=== PATIENT | female | born 1945 ===

== ENCOUNTER 2018-05-01 11:56 | Emergency (ER) | payer MEDICARE, OTHER ==
[2018-05-01 12:13] VITALS: O2SAT 99
--- NOTE | 2018-05-01 12:27 | ED PDOC ---
HPI: Female Pain Time Seen by Provider: 05/01/18 12:12 Chief Complaint (Nursing): Female Genitourinary Chief Complaint (Provider): Dysuria History Per: Patient, Family History/Exam Limitations: no limitations Onset/Duration Of Symptoms: Days (3) Additional Complaint(s): Pt reports dysuria, frequency and hesitancy X 3 days. Denies fever, abdominal pain, hematuria, vaginal discharge, constipation, diarrhea. Abnormal Vaginal Bleeding: No Past Medical History Reviewed: Nursing Documentation, Vital Signs Vital Signs: Last Vital Signs Temp 97.8 F 05/01/18 12:10 Pulse 91 H 05/01/18 12:10 Resp 20 05/01/18 12:10 BP 157/83 H 05/01/18 12:10 Pulse Ox 99 05/01/18 12:10 - Medical History PMH: No Chronic Diseases - Surgical History Surgical History: No Surg Hx - Family History Family History: States: Unknown Family Hx - Living Arrangements Living Arrangements: With Family - Social History Current smoker - smoking cessation education provided: No Alcohol: None - Home Medications Home Medications: Ambulatory Orders Medication Instructions Recorded Nitrofurantoin Macrocrystals 100 mg PO BID #13 cap 05/01/18 [Macrobid] Phenazopyridine [Pyridium] 200 mg PO TID PRN #6 tab 05/01/18 - Allergies Allergies/Adverse Reactions: Allergies Allergy/AdvReac Type Severity Reaction Status Date / Time No Known Allergies Allergy Verified 05/01/18 12:10 Review of Systems Constitutional: Negative for: Fever, Chills Gastrointestinal: Negative for: Nausea, Vomiting, Abdominal Pain, Diarrhea Genitourinary Female: Positive for: Dysuria, Frequency. Negative for: Incontinence, Hematuria, Vaginal Discharge, Vaginal Bleeding, Pelvic Pain Musculoskeletal: Negative for: Neck Pain, Back Pain Skin: Negative for: Rash, Lesions Neurological: Negative for: Headache Physical Exam - Reviewed Nursing Documentation Reviewed: Yes Vital Signs Reviewed: Yes - Physical Exam Appears: Positive for: Well, No Acute Distress Skin: Positive for: Normal Color, Warm, Dry Eye Exam: Positive for: Normal appearance, EOMI, PERRL Cardiovascular/Chest: Positive for: Regular Rate, Rhythm Respiratory: Positive for: Normal Breath Sounds Gastrointestinal/Abdominal: Positive for: Normal Exam, Bowel Sounds, Soft. Negative for: Tenderness Back: Positive for: Normal Inspection. Negative for: L CVA Tenderness, R CVA Tenderness Extremity: Positive for: Normal ROM Neurologic/Psych: Positive for: Alert, Oriented - ECG O2 Sat by Pulse Oximetry: 99 Medical Decision Making Medical Decision Makin yo female with dysuria. - urine dip - UA Disposition - Clinical Impression Clinical Impression: Urinary tract infection - Disposition Referrals: LTAC, [facility] [Outside] Disposition: Routine/Home Disposition Time: 13:57 Condition: GOOD Prescriptions: Nitrofurantoin Macrocrystals [Macrobid] 100 mg PO BID #13 cap Phenazopyridine [Pyridium] 200 mg PO TID PRN #6 tab PRN Reason: Bladder Spasm Instructions: Urinary Tract Infections in Adults Forms: [facility] (Kyrgyz) Print Language: TAMAZIGHT
[2018-05-01 12:58] LABS: SQUAMOUS EPITHIAL < 1 /hpf (0-5); URINE BACTERIA FEW (<OCC); URINE BILIRUBIN NEGATIVE (NEGATIVE); URINE BLOOD SMALL (NEGATIVE); URINE CLARITY CLOUDY (Clear); URINE COLOR YELLOW (YELLOW); URINE GLUCOSE (UA) NEG (Normal); URINE LEUKOCYTE ESTERASE LARGE Leu/uL (Negative); URINE PROTEIN NEGATIVE (NEGATIVE); URINE UROBILINOGEN 0.2-1.0 mg/dL (0.2-1.0)
[2018-05-01 14:17] VITALS: BP 144/83; PULSE 83; RESP 17; TEMP 98.1
== END 2018-05-01 14:17 | disposition home or self-care (01) ==
LOC: H.ER 11:56
DX: N39.0 Urinary tract infection, site not specified (principal)

== ENCOUNTER 2018-10-11 11:30 | Emergency (ER) | payer MEDICARE, OTHER ==
[2018-10-11 11:37] VITALS: BP 141/77; PULSE 93; RESP 18; TEMP 98.5; O2SAT 97; BMI 27.8
--- NOTE | 2018-10-11 12:28 | ED PDOC ---
HPI: CCC, URI, Sore Throat Time Seen by Provider: 10/11/18 12:09 Chief Complaint (Nursing): ENT Problem History Per: Patient, Family History/Exam Limitations: language barrier (french speaking, morris is translating) Onset/Duration Of Symptoms: Days Additional Complaint(s): 72 yo F presents with 3 days of left ear pain, feeling hot and cold, bodyaches, one episode of loose non bloody stool this morning and 1-2 weeks of nasal congestion. Pt has not had a fever when checked. She took Tylenol for the ear pain 2 days ago with mild relief. SHe has used Afrin nasal spray for 2 days with mild relief. Pt denies headache, changes in vision, chest pain, SOB, changes in hearing, sore throat, difficulty swallowing. Denies abdominal pain, nausea or vomiting, urinary symptoms. Denies eating anything abnormal or being on a ntibiotics recently. Of note, Pt is visiting from [place], does not have a PMD here. She got here / and will be here for 1-3 months. Past Medical History Reviewed: Historical Data, Nursing Documentation, Vital Signs Vital Signs: Last Vital Signs Temp 98.5 F 10/11/18 11:36 Pulse 93 H 10/11/18 11:36 Resp 18 10/11/18 11:36 BP 141/77 10/11/18 11:36 Pulse Ox 97 10/11/18 11:36 - Medical History PMH: No Chronic Diseases - Family History Family History: States: Unknown Family Hx - Social History Current smoker - smoking cessation education provided: Yes Alcohol: Occasional Drugs: Denies - Home Medications Home Medications: Ambulatory Orders Medication Instructions Recorded Nitrofurantoin Macrocrystals 100 mg PO BID #13 cap 05/01/18 [Macrobid] Phenazopyridine [Pyridium] 200 mg PO TID PRN #6 tab 05/01/18 Amoxicillin/Clavulanate [Augmentin 1 tab PO BID 10 Days #20 tab 10/11/18 875 MG-125 MG] Fluticasone Nasal [Flonase] 1 spr NS Q6 PRN #1 bottle 10/11/18 - Allergies Allergies/Adverse Reactions: Allergies Allergy/AdvReac Type Severity Reaction Status Date / Time No Known Allergies Allergy Verified 10/11/18 11:41 Review of Systems Constitutional: Positive for: Chills, Sweats ENT: Positive for: Ear Pain, Nose Congestion. Negative for: Ear Discharge, Throat Pain, Throat Swelling Cardiovascular: Negative for: Chest Pain Respiratory: Negative for: Cough, Shortness of Breath Gastrointestinal: Positive for: Diarrhea. Negative for: Nausea, Vomiting, Abdominal Pain Genitourinary Female: Negative for: Dysuria, Frequency Musculoskeletal: Negative for: Neck Pain, Back Pain Physical Exam - Reviewed Nursing Documentation Reviewed: Yes Vital Signs Reviewed: Yes - Physical Exam Comments: GENERAL APPEARANCE: Patient is awake, alert, oriented x 3, in no acute distress. SKIN: Warm, dry; (-) cyanosis. ENMT: Canals : (-) cerumen impaction, TMs: (+)left TM bulging and (+) erythema, (+)effusion bilateral, (-) perforation,(-) vesicles, other ear normal. Frontal / maxillary sinuses : (-) tenderness. (-) TMJ tenderness. (+)audible nasal congestion, Pharynx: Clear; (-) erythema, (-) exudate. Airway patent: (-) stridor. NECK: (-) stiffness, (-) tenderness, (-) lymphadenopathy. LUNGS: clear, (-) wheezing, (-) rhonchi. breaths sounds equal throughout CARDIAC: RRR, (-) murmurs, (-) gallops. ABDOMEN AND GI: normal bowel sounds, soft, (-) tenderness, (-)organomegaly NEURO: it consultant grossly intact, normal steady gait, motor and sensation intact - ECG O2 Sat by Pulse Oximetry: 97 Medical Decision Making Medical Decision Makin:15 initial eval pt with ear infection, sinusitis vs allergies Will treat with antibiotics and medications to go home with Discussed results, diagnosis, treatment, return precautions and f/u with pt who is understanding, in agreement and stable for dc Disposition - Clinical Impression Clinical Impression: Left otitis media with effusion, Sinusitis - Patient ED Disposition Is Patient to be Admitted: No Counseled Patient/Family Regarding: Studies Performed, Diagnosis, Need For Followup, Rx Given - Disposition Referrals: [facility] [Outside] Disposition: Routine/Home Disposition Time: 12:29 Condition: STABLE Additional Instructions: The emergency medical care you received today was directed at your acute symptoms. If you were prescribed any medication, please fill it and take as directed. It may take several days for your symptoms to resolve. Return to the Emergency Department if your symptoms worsen, do not improve, or if you have any other problems. Please contact your doctor in 2 days for re-evaluation and follow up / or call one of the physicians/clinics you have been referred to that are listed on the Patient Visit Information form that is included in your discharge packet. Bring any paperwork you were given at discharge with you along with any medications you are taking to your follow up visit. Our treatment cannot replace ongoing m edical care by a primary care provider (PCP) outside of the emergency department. La atencin mdica de emergencia que recibi hoy se dirigi a abner sntomas agudos. Si le recetaron algn medicamento, llnelo y tmelo segn las indicaciones. Los sntomas pueden tardar varios gonzales en resolverse. Regrese al Departamento de Emergencias si abner sntomas empeoran, no mejoran o si tiene otros problemas. Comunquese con nogueira mdico dentro de 2 gonzales para annabella nueva evaluacin y tahir un seguimiento o llame a josias de los mdicos / clnicas a los que diaz sido referido y que figuran en el formulario de Informacin de visita al paciente que se incluye en nogueira paquete de margarita. Lleve todos los documentos que recibi al momento del margarita junto con los medicamentos que est tomando para nogueira visita de seguimiento. Nuestro tratamiento no puede reemplazar la atencin mdica continua por parte de un proveedor de atencin primaria (PCP) fuera del departamento de emergencias. Prescriptions: Amoxicillin/Clavulanate [Augmentin 875 MG-125 MG] 1 tab PO BID 10 Days #20 tab Fluticasone Nasal [Flonase] 1 spr NS Q6 PRN #1 bottle PRN Reason: Nasal Congestion Instructions: Sinusitis in Adults, Ear Infections (Otitis Media) Forms: [facility] (Welsh) Print Language: ANGOLAN - POA Present On Arrival: None
== END 2018-10-11 12:45 | disposition home or self-care (01) ==
LOC: H.ER 11:30
DX: J32.9 Chronic sinusitis, unspecified (principal); H66.92 Otitis media, unspecified, left ear; F17.200 Nicotine dependence, unspecified, uncomplicated

== ENCOUNTER 2018-11-01 10:39 | Observation (INO) | payer MEDICARE, OTHER ==
[2018-11-01 11:16] VITALS: BMI 27.4
--- NOTE | 2018-11-01 12:25 | ED PDOC ---
HPI: General Adult Time Seen by Provider: 11/01/18 11:21 Chief Complaint (Nursing): ENT Problem Chief Complaint (Provider): ENT Problem History Per: Patient History/Exam Limitations: clinical condition Onset/Duration Of Symptoms: Days (x2 weeks ear pain, x4 months chest pain) Current Symptoms Are (Timing): Still Present Additional Complaint(s): 72 year old female with no significant past medical history presents to the ED with left ear pain onset 2 weeks and chest pain onset 4 months. Patient reports she was evaluated in this ED 2 weeks ago for left ear pain and given prescription for antibiotics with no relief. At present, pain is radiating to her face and she feels like something is dropping in her ear and moving to the right. Patient reports chest pain and shortness of breath for 4 months that is worse with exertion. Patient is visiting from [place], but will be living here. PMD: none provideda Past Medical History Reviewed: Historical Data, Nursing Documentation, Vital Signs Vital Signs: Last Vital Signs Temp 98.3 F 11/01/18 11:15 Pulse 82 11/01/18 11:15 Resp 16 11/01/18 11:15 BP 114/61 11/01/18 11:15 Pulse Ox 97 11/01/18 11:15 Primary Care Provider: FAMILY PROVIDER,NO - Medical History PMH: No Chronic Diseases - Family History Family History: States: Unknown Family Hx - Social History Current smoker - smoking cessation education provided: No Ex-Smoker (has not smoked in the last 12 months): No - Home Medications Home Medications: Ambulatory Orders Medication Instructions Recorded Nitrofurantoin Macrocrystals 100 mg PO BID #13 cap 05/01/18 [Macrobid] Phenazopyridine [Pyridium] 200 mg PO TID PRN #6 tab 05/01/18 Amoxicillin/Clavulanate [Augmentin 1 tab PO BID 10 Days #20 tab 10/11/18 875 MG-125 MG] Fluticasone Nasal [Flonase] 1 spr NS Q6 PRN #1 bottle 10/11/18 - Allergies Allergies/Adverse Reactions: Allergies Allergy/AdvReac Type Severity Reaction Status Date / Time No Known Allergies Allergy Verified 11/01/18 11:30 Review of Systems ROS Statement: Except As Marked, All Systems Reviewed And Found Negative ENT: Positive for: Ear Pain Cardiovascular: Positive for: Chest Pain Respiratory: Positive for: Shortness of Breath Physical Exam - Reviewed Nursing Documentation Reviewed: Yes Vital Signs Reviewed: Yes - Physical Exam Appears: Positive for: No Acute Distress Head Exam: Positive for: ATRAUMATIC, NORMOCEPHALIC Skin: Positive for: Normal Color, Warm, Dry Eye Exam: Positive for: Normal appearance, EOMI, PERRL ENT: Positive for: Other (tenderness to posterior ocular and periocular area, no discharge) Neck: Positive for: Painless ROM Cardiovascular/Chest: Positive for: Regular Rate, Rhythm. Negative for: Murmur Respiratory: Positive for: Normal Breath Sounds. Negative for: Respiratory Distress Gastrointestinal/Abdominal: Positive for: Normal Exam, Soft. Negative for: Tenderness Extremity: Positive for: Normal ROM (upper and lower). Negative for: Pedal Edema, Deformity Neurological/Psych: Positive for: Awake, Alert, Oriented (x3) - Laboratory Results Result Diagrams: 11/01/18 12:20 11/01/18 12:20 - ECG O2 Sat by Pulse Oximetry: 97 (RA) Pulse Ox Interpretation: Normal Medical Decision Making Medical Decision Making: Time: 1158 Impression: Ear/facial pain and chest pain Plan: --IAC w/o contrast --EKG --ProBNP --CMP --troponin --u dip --CBC --PTT --PT/INR --CXR --UA Time: 1523 --Spoke to Dr. Muhammad for admission, who recommends, cardiology consult, ECHO, aspirin, and troponin. Scribe Attestation: Documented by Roseanna Jacobs, acting as a scribe for Genesis Edouard MD. Provider Scribe Attestation: All medical record entries made by the Scribe were at my direction and personally dictated by me. I have reviewed the chart and agree that the record accurately reflects my personal performance of the history, physical exam, medical decision making, and the department course for this patient. I have also personally directed, reviewed, and agree with the discharge instructions and disposition. Disposition - Disposition Forms: [facility] (Hungarian)
[2018-11-01 12:37] LABS: INR 1.1; PROTHROMBIN TIME 12.6 Seconds (9.8-13.1)
[2018-11-01 12:39] LABS: PARTIAL THROMBOPLASTIN TIME 32.4 Seconds (25.6-37.1)
[2018-11-01 12:40] LABS: ALB/GLOB RATIO 1.4 (1.0-2.1); ALBUMIN 4.1 g/dL (3.5-5.0); ALT/SGPT 29 U/L (9-52); AST/SGOT 17 U/L (14-36); BASO % 0.6 % (0.0-2.0); BLOOD UREA NITROGEN 17 mg/dl (7-17); CALCIUM 9.1 mg/dL (8.4-10.2); EOS # 0.3 K/uL (0.0-0.7); EOS % 4.2 % (0.0-4.0); GFR NON-AFRICAN AMERICAN > 60; HEMOGLOBIN 12.6 g/dL (12.0-16.0); LYMPH # 1.4 K/uL (1.0-4.3); LYMPH % 17.8 % (20.0-40.0); MEAN CELL VOLUME 80.9 fl (81.0-99.0); MEAN CORPUSCULAR HEMOGLOBIN 27.1 pg (27.0-31.0); MEAN CORPUSCULAR HGB CONC 33.5 g/dL (33.0-37.0); MEAN PLATELET VOLUME 8.3 fl (7.2-11.7); MONO # 0.5 K/uL (0.0-0.8); MONO % 6.3 % (0.0-10.0); NEUT # 5.6 K/uL (1.8-7.0); NEUT % 71.1 % (50.0-75.0); NRBC % 0.1 % (0.0-0.0); RBC 4.66 Mil/uL (3.80-5.20); RED CELL DISTRIBUTION WIDTH 15.1 % (11.5-14.5); WHITE BLOOD COUNT 7.9 K/uL (4.8-10.8)
[2018-11-01 12:52] LABS: B-TYPE NATRIURETIC PEPTIDE 57.8 pg/ml (0-900)
[2018-11-01 13:21] LABS: SQUAMOUS EPITHIAL < 1 /hpf (0-5); URINE BILIRUBIN NEGATIVE (NEGATIVE); URINE BLOOD NEGATIVE (NEGATIVE); URINE CLARITY SLIGHTY-CLOUDY (Clear); URINE COLOR YELLOW (YELLOW); URINE GLUCOSE (UA) NEG (NEGATIVE); URINE LEUKOCYTE ESTERASE NEG Leu/uL (Negative); URINE PROTEIN NEGATIVE (NEGATIVE); URINE UROBILINOGEN 0.2-1.0 mg/dL (0.2-1.0)
--- NOTE | 2018-11-01 13:35 | RAD ---
Date of service: 11/01/2018 HISTORY: CP COMPARISON: No prior. FINDINGS: LUNGS: No active pulmonary disease. PLEURA: No significant pleural effusion identified, no pneumothorax apparent. CARDIOVASCULAR: No atherosclerotic calcification present No radiographic findings to suggest acute or significant cardiovascular disease. OSSEOUS STRUCTURES: No significant abnormalities. VISUALIZED UPPER ABDOMEN: Normal. OTHER FINDINGS: None. IMPRESSION: No active disease.
--- NOTE | 2018-11-01 15:39 | CARD ---
APPROVED REPORT Date of service: 11/01/2018 EKG Measurement Heart [id number] <Conclusion> Normal sinus rhythm Normal ECG
--- NOTE | 2018-11-01 16:55 | CT ---
Date of service: 11/01/2018 PROCEDURE: CT OF THE TEMPORAL BONES WITHOUT CONTRAST HISTORY: L ear/facial/postauricular pain COMPARISON: None available. TECHNIQUE: High resolution axial images of the temporal bones were obtained. Coronal and sagittal reformats were generated. Radiation dose: Total exam DLP = 450.44 mGy-cm. This CT exam was performed using one or more of the following dose reduction techniques: Automated exposure control, adjustment of the mA and/or kV according to patient size, and/or use of iterative reconstruction technique. FINDINGS: RIGHT TEMPORAL BONE: RIGHT MIDDLE EAR: Normal. RIGHT INNER EAR: Cochlea: Normal. Semicircular canals: Normal. RIGHT MASTOID AIR CELLS: Normal. RIGHT INTERNAL AUDITORY CANAL: Normal. RIGHT EXTERNAL AUDITORY CANAL: Normal. RIGHT VESTIBULAR AND COCHLEAR AQUEDUCT: Normal. OTHER FINDINGS: None. LEFT TEMPORAL BONE: LEFT MIDDLE EAR: Normal. LEFT INNER EAR: Cochlea: Normal. Semicircular canals: Normal. LEFT MASTOID AIR CELLS: There is partial opacification of the left mastoid air cells suggestive of mastoid effusion. No evidence of bony destruction. LEFT INTERNAL AUDITORY CANAL: Normal. LEFT EXTERNAL AUDITORY CANAL: Normal. LEFT VESTIBULAR AND COCHLEAR AQUEDUCTS: Normal. OTHER FINDINGS: There is lytic bony lesion in the squamous part of the left temporal lobe anterior and superior to the left mastoid measures 1.5 centimeter and contains sclerotic nidus of uncertain etiology may represent benign or less likely malignant bony lesion. IMPRESSION: Partial effusion of left mastoid. The possibility of mastoiditis is not totally excluded. No evidence of left otitis media or destructive lesion in the mastoid or middle ear. Lytic bony lesion noted in the squamous part of the left temporal lobe anterior and superior to the left mastoid contains sclerotic nidus.
--- NOTE | 2018-11-01 17:16 | CARD ---
APPROVED REPORT Date of service: 11/01/2018 EXAM: Two-dimensional and M-mode echocardiogram with Doppler and color Doppler. Other Information Quality : GoodRhythm : NSR INDICATION Chest Pain 2D DIMENSIONS IVSd1.17 (0.7-1.1cm)LVDd4.58 (3.9-5.9cm) LVOT Diameter2.02 (1.8-2.4cm)PWd1.11 (0.7-1.1cm) IVSs1.35 (0.8-1.2cm)LVDs2.61 (2.5-4.0cm) FS (%) 42.9 %PWs1.46 (0.8-1.2cm) M-Mode DIMENSIONS Left Atrium (MM)3.76 (2.5-4.0cm)IVSd1.03 (0.7-1.1cm) Aortic Root3.00 (2.2-3.7cm)LVDd5.12 (4.0-5.6cm) Aortic Cusp Exc.1.85 (1.5-2.0cm)PWd1.41 (0.7-1.1cm) IVSs1.53 cmFS (%) 46 % LVDs2.76 (2.0-3.8cm)PWs1.94 cm Aortic Valve AoV Peak Jfqnuxbl700.4cm/sAoV VTI28.2cmAO Peak GR.8mmHg LVOT Peak Ykgyavfl10.5cm/sLVOT VTI16.92cmAO Mean GR.5mmHg JEAN CARLOS (VMAX)1.20ox6AHO (VTI)1.11cm2 Mitral Valve MV E Enpmzezi00.9cm/sMV DECEL [id number] A Htboivqr45.9cm/s MV UWB62xmV/A ratio0.8MVA (PHT)2.88cm2 TDI Lateral E' Peak V8.39cm/sMedial E' Peak V6.60cm/sE/Lateral E'8.2 E/Medial E'10.4 LEFT VENTRICLE The left ventricle is normal size. There is mild concentric left ventricular hypertrophy. The left ventricular systolic function is normal. The estimated ejection fraction is 60-65% No regional wall motion abnormalities noted.. Transmitral Doppler flow pattern is Grade I-abnormal relaxation pattern. No left ventricle thrombus noted on this study. There is no ventricular septal defect visualized. There is no left ventricular aneurysm. There is no mass noted in the left ventricle. RIGHT VENTRICLE The right ventricle is normal size. There is normal right ventricular wall thickness. The right ventricular systolic function is normal. ATRIA The left atrium is mildly dilated. The right atrium size is normal. The interatrial septum is intact with no evidence for an atrial septal defect. AORTIC VALVE The aortic valve is normal in structure. No aortic regurgitation is present. There is no aortic valvular stenosis. There is no aortic valvular vegetation. MITRAL VALVE The mitral valve is normal in structure. There is no evidence of mitral valve prolapse. There is no mitral valve stenosis. There is no mitral valve regurgitation noted. TRICUSPID VALVE The tricuspid valve is normal in structure. There is no tricuspid valve regurgitation noted. There is no tricuspid valve prolapse or vegetation. There is no tricuspid valve stenosis. PULMONIC VALVE The pulmonary valve is normal in structure. There is no pulmonic valvular regurgitation. There is no pulmonic valvular stenosis. GREAT VESSELS The aortic root is normal in size. The ascending aorta is normal in size. The pulmonary artery is normal. The IVC is normal in size and collapses >50% with inspiration. PERICARDIAL EFFUSION There is no pericardial effusion. There is no pleural effusion. <Conclusion> There is mild concentric left ventricular hypertrophy. The estimated ejection fraction is 60-65% Transmitral Doppler flow pattern is Grade I-abnormal relaxation pattern. The left atrium is mildly dilated. There is no tricuspid valve regurgitation noted.
[2018-11-02 00:10] LABS: SQUAMOUS EPITHIAL 1 /hpf (0-5); URINE BILIRUBIN NEGATIVE (NEGATIVE); URINE BLOOD SMALL (NEGATIVE); URINE CLARITY CLEAR (Clear); URINE COLOR YELLOW (YELLOW); URINE GLUCOSE (UA) NEG (NEGATIVE); URINE LEUKOCYTE ESTERASE NEG Leu/uL (Negative); URINE PROTEIN NEGATIVE (NEGATIVE); URINE UROBILINOGEN 0.2-1.0 mg/dL (0.2-1.0)
[2018-11-02] MEDS ORDERED: Pneumococcal 23-Valent Vaccine IM ONE (05:00)
[2018-11-02 06:03] LABS: BASO % 0.4 % (0.0-2.0); EOS # 0.4 K/uL (0.0-0.7); EOS % 5.6 % (0.0-4.0); HEMOGLOBIN 12.3 g/dL (12.0-16.0); LYMPH # 1.6 K/uL (1.0-4.3); LYMPH % 20.3 % (20.0-40.0); MEAN CELL VOLUME 80.3 fl (81.0-99.0); MEAN CORPUSCULAR HEMOGLOBIN 26.8 pg (27.0-31.0); MEAN CORPUSCULAR HGB CONC 33.4 g/dL (33.0-37.0); MEAN PLATELET VOLUME 8.4 fl (7.2-11.7); MONO # 0.6 K/uL (0.0-0.8); MONO % 7.2 % (0.0-10.0); NEUT # 5.2 K/uL (1.8-7.0); NEUT % 66.5 % (50.0-75.0); NRBC % 0.1 % (0.0-0.0); RBC 4.58 Mil/uL (3.80-5.20); RED CELL DISTRIBUTION WIDTH 15.1 % (11.5-14.5); WHITE BLOOD COUNT 7.8 K/uL (4.8-10.8)
[2018-11-02 06:17] LABS: ALB/GLOB RATIO 1.3 (1.0-2.1); ALBUMIN 3.7 g/dL (3.5-5.0); ALT/SGPT 26 U/L (9-52); AST/SGOT 20 U/L (14-36); BLOOD UREA NITROGEN 14 mg/dl (7-17); CALCIUM 8.3 mg/dL (8.4-10.2); GFR NON-AFRICAN AMERICAN > 60; HDL CHOLESTEROL 27 MG/DL (30-70)
[2018-11-02 06:28] LABS: LDL CHOLESTEROL 103 mg/dL (0-129)
--- NOTE | 2018-11-02 13:55 | CP.PCM.HP ---
History of Present Illness - History of Present Illness History of Present Illness: CC: Ear pain. 72 y/o F, visiting from [place], with no chronic PMHx, returned to [facility] on 11/01/18 after 2 weeks to be re-evaluated for Left Ear pain that began 3 weeks [facility], on 10/11/18, Pt was discharged from this facility on abx, but did not have any improvement, Pt c/o of L ear pain, severe intensity 8:10, radiated to L neck area, associated to sensation of water in her ear and headache, also FOWLER and Chest pain epigastric pain , intermittent since September of this year , at times feeling coming from epigastric area to retrosternal area Worsening symptoms: SOB worsening with exertion, former smoker. Aggravated factor: ADL's. Pt denied: fever, chills, n/v/d, abdominal pain, urinary symptoms, sick contact, recent travel out of [facility] [[email or web address] ICA w/o contrast: Partial effusion of L mastoid, Mastoiditis not totally excluded. [place] bony lesion in the squamous part of the L temporal lobe anterior and superior to the L mastoid contains sclerotic nidus. CXR: No active disease. EKG: Normal sinus rhythm. Echo: LVEF 60-65%, mild L ventricular hypertrophy, L atrium mildly dilated, transmittal Doppler pattern is grade I abnormal relaxation. Present on Admission - Present on Admission Any Indicators Present on Admission: No Review of Systems - Constitutional Constitutional: Headache - EENT Eyes: Other (negative) Ears: Ear Pain Nose/Mouth/Throat: Other (negative) - Cardiovascular Cardiovascular: Chest Pain - Respiratory Respiratory: Other (SOB) - Gastrointestinal Gastrointestinal: Other (negative) - Genitourinary Genitourinary: Other (negative) - Musculoskeletal Musculoskeletal: Neck Pain (radiating from L ear) - Integumentary Integumentary: Other (ngative) - Neurological Neurological: Headaches - Psychiatric Psychiatric: Other (negative) - Endocrine Endocrine: Other (negtaive) - Hematologic/Lymphatic Hematologic: Other (negative) Past Patient History - Past Medical History & Family History Past Medical History?: No Pertinent Family History: Unknown - Past Social History Smoking Status: Former Smoker Alcohol: None Drugs: Denies Home Situation {Lives}: Alone (significant) - CARDIAC Hx Cardiac Disorders: No - PULMONARY Hx Respiratory Disorders: No - NEUROLOGICAL Hx Neurological Disorder: No - HEENT Hx HEENT Problems: No - RENAL Hx Chronic Kidney Disease: No - ENDOCRINE/METABOLIC Hx Endocrine Disorders: No - HEMATOLOGICAL/ONCOLOGICAL Hx Blood Disorders: No Hx AIDS: No Hx Human Immunodeficiency Virus (HIV): No - INTEGUMENTARY Hx Dermatological Problems: No - MUSCULOSKELETAL/RHEUMATOLOGICAL Hx Musculoskeletal Disorders: No Hx Falls: No - GASTROINTESTINAL Hx Gastrointestinal Disorders: No - GENITOURINARY/GYNECOLOGICAL Hx Genitourinary Disorders: No - PSYCHIATRIC Hx Psychophysiologic Disorder: No Hx Substance Use: No - SURGICAL HISTORY Hx Surgeries: No - ANESTHESIA Hx Anesthesia: No Meds Allergies/Adverse Reactions: Allergies Allergy/AdvReac Type Severity Reaction Status Date / Time No Known Allergies Allergy Verified 11/01/18 11:30 Physical Exam - Constitutional Appears: No Acute Distress - Head Exam Head Exam: NORMAL INSPECTION - Eye Exam Eye Exam: PERRL - ENT Exam ENT Exam: Normal Exam - Neck Exam Neck exam: Positive for: Normal Inspection - Respiratory Exam Respiratory Exam: Clear to Auscultation Bilateral - Cardiovascular Exam Cardiovascular Exam: REGULAR RHYTHM - GI/Abdominal Exam GI & Abdominal Exam: Normal Bowel Sounds, Soft - Extremities Exam Extremities exam: Positive for: normal inspection - Back Exam Back exam: NORMAL INSPECTION - Neurological Exam Neurological exam: Alert, Oriented x3 - Psychiatric Exam Psychiatric exam: Normal Mood - Skin Skin Exam: Normal Color, Warm Results - Vital Signs Recent Vital Signs: Last Vital Signs Temp 98.3 F 11/02/18 12:04 Pulse 74 11/02/18 12:04 Resp 20 11/02/18 12:04 BP 148/78 11/02/18 12:04 Pulse Ox 95 11/02/18 12:04 reviewed Karla - Labs Result Diagrams: 11/02/18 04:25 11/02/18 04:25 Labs: Laboratory Results - last 24 hr 11/01/18 11/01/18 11/01/18 19:25 23:40 23:40 WBC RBC Hgb Hct MCV MCH MCHC RDW Plt Count MPV Neut % (Auto) Lymph % (Auto) [place] % (Auto) Eos % (Auto) Baso % (Auto) Neut # (Auto) Lymph # (Auto) [place] # (Auto) Eos # (Auto) Baso # (Auto) Sodium Potassium Chloride Carbon Dioxide Anion Gap BUN Creatinine Est GFR ( Amer) Est GFR (Non-Af Amer) Random Glucose Calcium Total Bilirubin AST ALT Alkaline Phosphatase Troponin I < 0.0120 < 0.0120 Total Protein Albumin Globulin Albumin/Globulin Ratio Triglycerides Cholesterol LDL Cholesterol Direct HDL Cholesterol Thyroxine (T4) TSH 3rd Generation Urine Color Yellow Urine Clarity Clear Urine pH 6.0 Ur Specific [place] 1.011 Urine Protein Negative Urine Glucose (UA) Neg Urine Ketones Negative Urine Blood Small Urine Nitrate Negative Urine Bilirubin Negative Urine Urobilinogen 0.2-1.0 Ur Leukocyte Esterase Neg Urine RBC (Auto) 3 Urine Microscopic WBC 2 Ur Squamous Epith Cells 1 11/02/18 11/02/18 04:25 04:25 WBC 7.8 RBC 4.58 Hgb 12.3 Hct 36.7 MCV 80.3 L MCH 26.8 L MCHC 33.4 RDW 15.1 H Plt Count 244 MPV 8.4 Neut % (Auto) 66.5 Lymph % (Auto) 20.3 [place] % (Auto) 7.2 Eos % (Auto) 5.6 H Baso % (Auto) 0.4 Neut # (Auto) 5.2 Lymph # (Auto) 1.6 [place] # (Auto) 0.6 Eos # (Auto) 0.4 Baso # (Auto) 0.0 Sodium 139 Potassium 4.0 Chloride 101 Carbon Dioxide 29 Anion Gap 13 BUN 14 Creatinine 0.8 Est GFR ( Amer) > 60 Est GFR (Non-Af Amer) > 60 Random Glucose 124 H Calcium 8.3 L Total Bilirubin 0.3 AST 20 ALT 26 Alkaline Phosphatase 58 Troponin I Total Protein 6.6 Albumin 3.7 Globulin 2.9 Albumin/Globulin Ratio 1.3 Triglycerides 204 H Cholesterol 162 LDL Cholesterol Direct 103 HDL Cholesterol 27 L Thyroxine (T4) 7.16 TSH 3rd Generation 2.01 Urine Color Urine Clarity Urine pH Ur Specific [place] Urine Protein Urine Glucose (UA) Urine Ketones Urine Blood Urine Nitrate Urine Bilirubin Urine Urobilinogen Ur Leukocyte Esterase Urine RBC (Auto) Urine Microscopic WBC Ur Squamous Epith Cells reviewed J.P. - EKG Data EKG comments: reviewed J.P. - Imaging and Cardiology Chest x-ray Status: Report reviewed by me Echocardiogram Status: Report reviewed by me (J.P.) IAC w/o contrast Status: Report reviewed by me (J.P.) Assessment & Plan (1) Chest pain Status: Acute Priority: High (2) Left otitis media with effusion Status: Acute Priority: High - Assessment and Plan (Free Text) Plan: Pattient cleared by ENT and [facility] [place] , f/u with him and have STT as out Patient , f/u ENT as out Patient , f/u GI as out Patient - Date & Time Date: 11/02/18 Time: 11:00
[2018-11-02] MEDS ORDERED: Pantoprazole 40 mg EC Tab PO SCH (14:00)
[2018-11-02 16:25] VITALS: BP 147/74; PULSE 83; RESP 17; TEMP 98.1; O2SAT 99
--- NOTE | 2018-11-02 17:31 | CARD ---
APPROVED REPORT Date of service: 11/02/2018 EKG Measurement Heart [id number] <Conclusion> Normal sinus rhythm Normal ECG
--- NOTE | 2018-11-03 04:32 | CON ---
DATE: 11/02/2018 CARDIOLOGY CONSULTATION REASON FOR CONSULTATION: Chest pain. HISTORY OF PRESENT ILLNESS: The patient is a 72-year-old female who has no significant past medical history, initially presented because of left ear pain and swelling and she reported also chest discomfort and shortness of breath over the past four months, worse on exertion. The patient is unaware of any prior cardiac history. SOCIAL HISTORY: The patient is a smoker. She is , lives with her . REVIEW OF SYSTEMS: No fever or chills. No nausea or vomiting. She does complain of abdominal discomfort as well as diarrhea. MEDICATIONS: Protonix 40 mg once a day, Tylenol one tablet every 6 hours p.r.n. The patient did receive aspirin 325 mg on admission. PAST MEDICAL HISTORY: Insignificant. PHYSICAL EXAMINATION: GENERAL: The patient is an elderly female who does not appear to be in acute distress. VITAL SIGNS: Blood pressure 147/74, heart rate 83, temperature 98.1, and respirations 17. HEENT: No pallor or icterus. NECK: No JVD. CHEST: Clear. HEART: S1, S2, regular. ABDOMEN: Soft. EXTREMITIES: No edema. LABORATORY DATA: Today's hemoglobin, hematocrit, white count, and platelet count are within normal limits. Today's SMA-7 is within normal limits except for glucose of 124. Three sets of troponin are negative. TSH level is within normal limit. PT, PTT, and INR are within normal limits. Two EKGs revealed normal sinus rhythm. Echocardiography study revealed mild concentric LVH with normal ejection fraction and grade 1 abnormal relaxation pattern with mildly dilated left atrium. CT scan of the internal auditory canal revealed partial effusion of the left mastoid. The possibility of mastoiditis is not totally excluded. No evidence of left otitis media or destructive lesion in the mastoid or middle ear. Lytic bony lesions noted in the squamous part of the left temporal lobe anterior and superior to the left mastoid, contains sclerotic nidus. Chest x-ray: No active disease. ASSESSMENT: 1. Chest pain, myocardial infarction is ruled out. 2. Mild concentric left ventricular hypertrophy, consider hypertensive heart. 3. Reduced left ventricular diastolic compliance. 4. Left mastoiditis. RECOMMENDATIONS: No specific cardiac workup is recommended at this time except after the resolution of the patient's current mastoiditis. The patient needs to be scheduled for a routine treadmill stress test. Zoran Cedillo MD [facility] # [id number]
== END 2018-11-02 18:00 | disposition home or self-care (01) ==
LOC: H.ER 10:39 → H.ERHOLD 15:00 → H.TEL 22:14
PROVIDERS: ADMIT Internal Medicine Pulmonary Disease; ATTEND Internal Medicine Pulmonary Disease
DX: R07.89 Other chest pain (principal); H65.192 Other acute nonsuppurative otitis media, left ear; I51.7 Cardiomegaly; H70.92 Unspecified mastoiditis, left ear; F17.200 Nicotine dependence, unspecified, uncomplicated; Z23 Encounter for immunization
CPT/HCPCS: 36415; 70480; 71045; 80053; 80061; 81003; 83880; 84436; 84443; 84484; 85025; 85610; 85730; 90732; 93005; 93306; 99285; G0009; G0378